=== PATIENT | male | born 1990 | race Caucasian/White ===

== ENCOUNTER 2023-09-24 19:04 | Emergency (ER) | payer SELFPAY ==
[~2023-09-24] VITALS: Ht 167.6 cm; Wt 99.8 kg
[2023-09-24 19:10] VITALS: BP 136/98; PULSE 90; RESP 19; TEMP 97.5; O2SAT 94
[2023-09-24] MEDS ORDERED: IBUP-2213 PO (19:51)
[2023-09-24] MEDS ORDERED: CEPH-588 PO (19:51)
== END 2023-09-24 19:57 | disposition home or self-care (01) ==
LOC: MED 19:04
DX: S61.531A Puncture wound without foreign body of right wrist, initial encounter (principal); L03.113 Cellulitis of right upper limb; Z79.899 Other long term (current) drug therapy; W57.XXXA Bitten or stung by nonvenomous insect and other nonvenomous arthropods, initial encounter; Y93.89 Activity, other specified; Y92.89 Other specified places as the place of occurrence of the external cause; Y99.8 Other external cause status
CPT/HCPCS: 99283